=== PATIENT | female | born 1955 | race Caucasian/White ===

== ENCOUNTER 2024-12-31 11:03 | Outpatient (OUT) | payer MEDICARE, SELFPAY ==
--- NOTE | 2024-12-31 | XR_ITS ---
[facility] [place] [id number] Patient Name: CINDY MONTE MRN: [id number] date: 1955 Sex: F Assigned Patient Location: [facility] Current Patient Location: [facility] Accession/Order Number: [id number] Exam Date: 12/31/2024 11:05 Report Date: 12/31/2024 11:24 At the request of: CHEYENNE CORRAL DO Procedure: XR foot LT min 3V LEFT FOOT - 3 views CLINICAL HISTORY: M79.672 PAIN IN LEFT FOOT COMPARISON: None FINDINGS: No focal soft tissue abnormality. Bones are grossly demineralized. Presumed remote trauma/fracture is seen involving the base of the fifth metatarsal. Mild scattered degenerative changes without bony erosions. XR/XR foot LT min 3V IMPRESSION: PRESUMED REMOTE TRAUMA INVOLVING THE BASE OF THE FIFTH METATARSAL. NO ACUTE PROCESS IS SEEN.. Impression dictated by: Dax Beard Jr., D.O. 12/31/2024 11:24 AM Dictation Location: [place] [address] Electronically authenticated by: [id number] Y Date: 12/31/2024 11:24
--- OUTSIDE RECORDS SUMMARY | 2024-12-31 11:05 | XMS_ITS | Clinical Summary ---
Author Organization [facility] Address [address] [place] [address] Care Team Providers Care Psychiatric Technician Assistant Name Role Phone Rigo Munoz MD Primary Care Provider [phone] Allergies Active Allergy Reactions Criticality Noted Date Comments Amoxicillin-Pot Clavulanate 10/02/19 24 Fish Oil 01/07/2019 Gabapentin 07/10/2011 Other Reaction(s): Not available, other, Unknown Metformin And Related Diarrhea 09/18/2021 Peanut (Diagnostic) 01/07/2019 Other Reaction(s): Other (See Comments) Walnuts Shellfish-Derived Products 9 Other Reaction(s): Not available Shrimp Extract 01/07/2019 Other Reaction(s): Not available Tramadol 07/10/2011 Other Reaction(s): Unknown Medications alendronate (Fosamax) 70 MG tablet Take 1 tablet by mouth 1 (one) time per week 10/02/2023 Active rosuvastatin (Crestor) 10 MG tablet Take 1 tablet by mouth Daily 07/29/2023 Active cholecalciferol (Vitamin D-3) 50 MCG (1999 UT) capsule Take by mouth Active cyanocobalamin (Vitamin B-12) 100 MCG tablet Take 0.5 tablets by mouth Daily Active metoprolol tartrate (Lopressor) 50 MG tablet Take 1 tablet by mouth in the morning and 1 tablet before bedtime. 12/27/2022 Active MILK THISTLE PO Take by mouth Active SITagliptin (Januvia) 100 MG tablet Take 1 tablet by mouth Daily Active Ashwagandha ([employer]S Ashwagandha) 300 MG tablet Take 300 mg by mouth in the evening. Take with meals Active glucose blood (OneTouch Verio) test stripIndications :Type 2 diabetes mellitus without complication, unspecified whether technician terminal and repeater insulin use (HCC) USE 1 STRIP TO CHECK GLUCOSE TWICE DAILY 200 each 1 10/22/2024 Active Active Problems Problem Noted Date Diagnosed Date Type 2 diabetes mellitus without complications 0 10/02/2023 Hypertension 01/16/2023 Transient ischemic attack 06/12/2012 Encounters Date Type Department Care Team Description 10/22/2024 Refill [facility] [id number] [place] [address] Dana Arvizu MD Type 2 diabetes mellitus without complication, unspecified whether technician terminal and repeater insulin use (HCC) from Last 3 Months Immunizations Immunization Administration Dates Next Due Influenza Whole 02/08/2015 Influenza, Unspecified 01/30/2018 Influenza, injectable, MDCK, preservative free, quadrivalent 01/08/2017 Influenza, injectable, quadrivalent, preservativ e free 12/25/2017 Pneumococcal Conjugate PCV 20 06/11/2021 Tdap 09/19/2014 Tetanus toxoid, adsorbed 01/06/2015 Zoster, Recombinant 07/09/2022,02/22/2022 Family History Medical History Relation Name Comments Diabetes Father Prostate cancer Father Diabetes Mother Heart disease Mother Kidney disease Mother Relation Name Status Comments Father Mother Social History Tobacco Use Types Packs/Day Years Used Date Smoking Tobacco: Never Smokeless Tobacco: Never Tobacco Cessation:Counseling Given: Not Answered Alcohol Use Standard Drinks/Week Comments Yes 0 (1 standard drink = 0.6 oz pur e alcohol) Comments Unknown Sex and Gender Information Value Date Recorded Sex Assigned at Not on file Legal Sex Female 7:01 PM EDT Gender Identity Not on file Sexual Orientation Not on file Last Filed Vital Signs Vital Sign Reading Time Taken Comments Blood Pressure 120/66 07/24/2023 11:03 AM EDT Pulse 65 07/24/2023 11:03 AM EDT Temperature - - Respiratory Rate 16 07/24/2023 11:03 AM EDT Oxygen Saturation 99% 07/24/2023 11:03 AM EDT Inhaled Oxygen Concentration - - Weight 88.5 kg (195 lb) 10/04/2023 9:55 AM EDT Height 170.2 cm (5' 7 ) 10/04/2023 9:55 AM EDT Body Mass Index 30.54 10/04/2023 9:55 AM EDT Plan of Treatment Health Maintenance Due Date Last Done Comments CT Colonography 1955 FIT-DNA 1955 FIT 1955 FOBT 1955 Sigmoidoscopy 1955 Mammogram 01/25/2024 01/24/2023, 01/06, 09/12/2020, Additional history exists Colonoscopy 03/09/2024 03/09/2014 Colorectal Cancer Screening 03/09/2024 Influenza Vaccine (#1) 2024 8, 12/25/2017, 01/08/2017, Additional history exists Pneumococcal Vaccine: 65+ Years Completed 2 Insurance [employer] MED[employer]ARE Care Teams Psychiatric Technician Assistant Relationship Specialty Start Date End Date Rigo Munoz MD [address] [place] [address] PCP - General Family Medicine 10/02/23
== END 2024-12-31 11:04 | disposition home or self-care (01) ==
LOC: RAD 11:03
PROVIDERS: PCP Family Medicine; Visit Provider Physician Assistant
DX: M79.672 Pain in left foot (principal)
CPT/HCPCS: 73630